=== PATIENT | male | born 1950 | race Caucasian/White ===

== ENCOUNTER → 2021-03-15 | Outpatient (REF) | payer MEDICARE | LOC: M LAB REF 16:09 | PROVIDERS: ATTEND Otolaryngology | DX: Q18.0 Sinus, fistula and cyst of branchial cleft (principal); Z85.79 Personal history of other malignant neoplasms of lymphoid, hematopoietic and related tissues; R22.1 Localized swelling, mass and lump, neck ==

== ENCOUNTER → 2021-03-22 | Outpatient (CLI) | payer MEDICARE ==
--- NOTE | 2021-03-22 15:49 | RADONC.CN ---
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 He underwent CT neck at [facility] on 03/13/21 which showed a left necrotic 3 cm level II cervical node as well as incompletely imaged upper mediastinal nodes. On 03/16/21 he had an FNA of the left neck node which was nondiagnostic. 03/20/21 CT chest abdomen and pelvis at [facility] showed mediastinal adenopathy encasing the right pulmonary artery and severely narrowing the SVC and azygous veins. 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 Diagnosis/Treatment History Oncologic History As above Recent data: 03/20/21 CT chest Confluent mediastinal adenopathy from the thoracic inlet extending inferiorly to the right hilum. The right pulmonary artery is encased. The SVC and azygous vein are narrowed. There is collateralization evident. Interval History Here with his daughter. Reports that he feels lightheaded as if he would pass out with bending over or flexing at the neck. He has noted increased facial swelling and ear pain/fullness. He has no dysphagia or hoarseness. He has no dyspnea. He is a current smoker, interested in quitting. Past Medical History: NHL 2000 'Anaplastic large cell lymphoma' Lumbar disc disease Family History: Brother 1 leukemia Brother 2 leukemia Social History: Current everyday smoker 40 pack year Does not drink Allergies / Meds Allergies: Coded Allergies: Cat Dander (Verified Allergy, Mild, STUFFY NOSE, 03/21/21) ENVIRONMENTAL (Verified Allergy, Mild, STUFFY/RUNNY NOSE, 03/21/21) Review of Systems Constitutional: Denies: Fever, Night Sweats, Weight Loss Eyes: Denies: Pain HEENT: Reports: Ear Pain, Other Symptoms (Lightheadedness ); Denies: Head Aches, Dysphagia, Sore Throat Skin: Denies: Rash Pulmonary: Denies: Dyspnea Cardiovascular: Denies: Chest Pain Gastrointestinal: Denies: Abdominal Pain Hematologic: Denies: Bleeding Excessively Musculoskeletal: Reports: Back pain; Denies: Neck pain Neurological: Denies: Weakness, Numbness Psych: Reports: Mood Normal Vital Signs Wt 236 lbs T 96.9 P 103 RR 19 BP 125/81 O2 100% Pain 8 (low back, chronic) Fatigue 1 General Exam: Alert, Cooperative, No Acute Distress Eye Exam: PERRLA, EOMI ENT EXAM: Other ENT (Face with plethora, no oropharyngeal edema. There is edema in the cervical soft tissues. Single large rubbery left level II/III node. Non- tender. No supraclavicular or axillary adenopathy. ) Chest Exam: Clear to auscultation Heart Exam: Rate Normal Abdomen Exam: Soft; Negative: Tenderness, Hepatospenomegaly Extremity Exam: Negative: Edema Skin Exam: Nl turgor and temperature Neuro Exam: Normal Gait, Normal Speech, Cranial Nerves 3-12 NL Psych Exam: Mental status NL Diagnostic and Laboratory Diagnostic Review Radiologic images, relevant labs and pathology reports were personally reviewed and discussed with Mr. Rubio. Assessment and Plan Impression Mr. 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 He underwent CT neck at [facility] on 03/13/21 which showed a left necrotic 3 cm level II cervical node as well as incompletely imaged upper mediastinal nodes. On 03/16/21 he had an FNA of the left neck node which was nondiagnostic. 03/20/21 CT chest abdomen and pelvis at [facility] showed mediastinal adenopathy encasing the right pulmonary artery and severely narrowing the SVC and azygous veins. 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 Stage Anaplastic large cell lymphoma (pending re-biopsy) Stage II Performance Status ECOG 1 Plan We had an extensive discussion with Mr. Rubio regarding the diagnosis at hand and available therapeutic options. On exam he has signs of SVC syndrome and radiographic high-grade stenosis of the SVC from the mediastinal adenopathy. He has not yet undergone diagnostic biopsy of the left cervical node. This is pending, as are PET-CT and BM biopsy. Not to mention mediport placement... Given the likely 2-3 week delay to accomplish the relevant diagnostics and get him started on appropriate systemic therapy, I recommend we proceed with palliative mediastinal RT now to prevent worsening of his SVC syndrome. I recommend 20 Gy in 5 fractions. We discussed the logistics of receiving radiation therapy in detail including the need for a 1-time planning session. This can occur tomorrow. Treatment can begin early next week. The proposed mediastinal treatment will not interfere with any excisional biopsy of the neck node. The proposed RT will also not preclude or complicate our ability to give consolidative ISRT post-systemic therapy completion, if indicated. For side effects he could expect some mild fatigue and esophagitis, possibly. After discussing the risks, benefits and alternatives to radiation therapy, Mr. Rubio was amenable to pursuing radiotherapy. All questions were answered to the patient's satisfaction. We instructed the patient that if there were any questions,concerns or changes in clinical status in the interim to contact us. Recommendations Urgent palliative RT for SVC syndrome 20 Gy in 5 fractions Will not interfere with biopsy targets Will not preclude consolidative ISRT down the line, if indicated Simulation tomorrow, treatment starting next week Billing Statement Total time of [46] minutes was spent preparing for the visit [3], obtaining HPI [9], examining the patient [5], reviewing diagnostic tests [7], discussing management options [10], coordinating care [3], and writing this note [9]. DARI MELVIN MD Mar 22, 2021 15:49
== END ==
LOC: M ONCR 12:38
PROVIDERS: ATTEND General Practice
DX: R59.0 Localized enlarged lymph nodes (principal); F17.210 Nicotine dependence, cigarettes, uncomplicated; J30.2 Other seasonal allergic rhinitis; Z85.72 Personal history of non-Hodgkin lymphomas; Z91.09 Other allergy status, other than to drugs and biological substances

== ENCOUNTER 2021-04-02 13:16 | Outpatient (RCR) | payer MEDICARE ==
[2021-04-26] MEDS ORDERED: ATIV1TAB10 PO (11:09)
[2021-06-13] MEDS ORDERED: PROC10TA5 PO (08:48)
[2021-06-13] MEDS ORDERED: ONDA-84 PO (08:48)
== END 2021-04-17 ==
LOC: M ONCR 13:16
PROVIDERS: ATTEND General Practice
DX: C84.78 Anaplastic large cell lymphoma, ALK-negative, lymph nodes of multiple sites (principal)

== ENCOUNTER 2021-04-04 07:00 | Day surgery (SDC) | payer MEDICARE ==
[~2021-04-04] VITALS: Ht 177.8 cm; Wt 104.3 kg
[2021-04-04] MEDS ORDERED: LR 1,000 ML IV ONE (07:15)
[2021-04-04] MEDS ORDERED: dexameTHASONE 4 MG/ML 1ML VIAL (J1100 PER 1MG) IV ONE (07:15)
[2021-04-04] MEDS ORDERED: LIDOCAINE W/EPINEPHRINE 1% 20ML VIAL As Ordered ONE (08:22)
[2021-04-04] MEDS ORDERED: POLYSPORIN TOPICAL OINTMENT 15GM As Ordered ONE (08:23)
[2021-04-04] MEDS ORDERED: ROCURONIUM BROMIDE 50 MG/5 ML VIAL As Ordered ONE (08:24)
[2021-04-04] MEDS ORDERED: LIDOCAINE 2% 100MG/5ML SDV (FOR ANES.) As Ordered ONE (08:24)
[2021-04-04] MEDS ORDERED: propofoL 200 MG/20 ML VIAL As Ordered ONE (08:24)
[2021-04-04] MEDS ORDERED: fentaNYL 250 MCG/5 ML INJECTION (J3010) As Ordered ONE (08:24)
[2021-04-04] MEDS ORDERED: MIDAZOLAM INJ 2MG/2ML VIAL (J2250 PER 1MG) As Ordered ONE (08:25)
[2021-04-04] MEDS ORDERED: dexameTHASONE 4 MG/ML 1ML VIAL (J1100 PER 1MG) As Ordered ONE ×2 (09:10→09:18)
[2021-04-04] MEDS ORDERED: PHENYLephrine 500MCG 5ML (100MCG/ML) SYRINGE As Ordered ONE ×2 (09:10→09:35)
[2021-04-04] MEDS ORDERED: ACETAMINOPHEN 1000MG 100ML IV BTL (OFIRMEV) (J0131 PER 10MG) As Ordered ONE (09:24)
[2021-04-04] MEDS ORDERED: HYDROmorphone HCL 2MG/ML 1ML VIAL As Ordered ONE (09:26)
[2021-04-04] MEDS ORDERED: SUGAMMADEX SODIUM 500 MG/5 ML VIAL (BRIDION) As Ordered ONE (09:28)
[2021-04-04] MEDS ORDERED: ONDANSETRON 4MG/2ML VIAL As Ordered ONE (09:28)
[2021-04-04] MEDS ORDERED: fentaNYL 100 MCG/2 ML INJECTION (J3010) IV PRN (11:05)
[2021-04-04] MEDS ORDERED: ONDANSETRON 4MG/2ML VIAL IV PRN (11:05)
[2021-04-04] MEDS ORDERED: LR 1,000 ML IV SCH ×2 (11:05)
[2021-04-04] MEDS ORDERED: METOCLOPRAMIDE INJ 10MG/2ML VIAL (J2765 PER 1) IV PRN (11:05)
[2021-04-04 13:03] VITALS: BP 127/79
[2021-04-26] MEDS ORDERED: ATIV1TAB10 PO (11:09)
[2021-06-13] MEDS ORDERED: ONDA-84 PO (08:48)
[2021-06-13] MEDS ORDERED: PROC10TA5 PO (08:48)
== END 2021-04-04 13:21 | disposition home or self-care (01) ==
LOC: M SDC 07:00
PROVIDERS: ATTEND Otolaryngology
DX: C77.0 Secondary and unspecified malignant neoplasm of lymph nodes of head, face and neck (principal); F17.218 Nicotine dependence, cigarettes, with other nicotine-induced disorders; K21.9 Gastro-esophageal reflux disease without esophagitis; R73.03 Prediabetes; Z92.3 Personal history of irradiation
CPT/HCPCS: 21552; 88307; 88341; 88342; J0131; J1100; J1170; J2250; J2370; J2405; J3010

== ENCOUNTER → 2021-04-30 | Outpatient (CLI) | payer MEDICARE ==
[~2021-04-30] MED LIST: ATIV1TAB10 PO; ONDA-84 PO; PROC10TA5 PO
== END ==
LOC: M PLARAD 12:32
PROVIDERS: ATTEND Internal Medicine Hematology & Oncology
DX: C84.78 Anaplastic large cell lymphoma, ALK-negative, lymph nodes of multiple sites (principal); J43.2 Centrilobular emphysema; I70.0 Atherosclerosis of aorta; I25.10 Atherosclerotic heart disease of native coronary artery without angina pectoris; R59.0 Localized enlarged lymph nodes; K57.90 Diverticulosis of intestine, part unspecified, without perforation or abscess without bleeding; E27.9 Disorder of adrenal gland, unspecified
CPT/HCPCS: 78815; A9552

== ENCOUNTER → 2021-05-07 | Outpatient (CLI) | payer MEDICARE ==
[~2021-05-07] MED LIST changes: -ONDA-84 PO; -PROC10TA5 PO; +PROHANCE 279.3MG/ML 15ML VIAL As Ordered ONE; +PROHANCE 279.3MG/ML 5ML VIAL As Ordered ONE
--- NOTE | 2021-05-08 20:19 | REPVR ---
PROCEDURE INFORMATION: Exam: MR Head Without and With Contrast Exam date and time: 05/07/2021 2:17 PM Age: 70 years old Clinical indication: Staging for metastatic disease. TECHNIQUE: Imaging protocol: MR of the head without and with intravenous contrast. Contrast material: PROHANCE; Contrast volume: 20 ml; Contrast route: INTRAVENOUS (IV); COMPARISON: CT ST NECK W/ CONTRAST 03/13/2021 9:40 AM, PET/CT Skull/mid thigh 04/30/2021 1:48 PM FINDINGS: Brain: Moderate nonspecific T2/FLAIR hyperintensities of the periventricular and deep subcortical white matter, most likely secondary to chronic small vessel ischemic change. No intracranial hemorrhage or extra-axial fluid collection. No evidence of mass effect or midline shift. No restricted diffusion to suggest acute infarct. No abnormal intracranial enhancement. Cerebral ventricles: Mild prominence of the ventricles and sulci, likely attributed to parenchymal volume loss. Bones/joints: Unremarkable. Paranasal sinuses: Normal as visualized. No acute sinusitis. Mastoid air cells: No mastoid effusion. Orbital cavity: Unremarkable. Soft tissues: Unremarkable. IMPRESSION: 1. No acute intracranial pathology. No evidence of metastatic disease to the brain. 2. Chronic findings, as above. Electronically signed by: Jose Carlos Barton On 05/08/2021 20:19:28 PM
== END ==
LOC: M PLAIMG 04-18 13:44 → M RAD 12:40
PROVIDERS: ATTEND Specialist
DX: C34.90 Malignant neoplasm of unspecified part of unspecified bronchus or lung (principal)
CPT/HCPCS: 70553; A9576

== ENCOUNTER → 2021-06-05 | Outpatient (CLI) | payer MEDICARE ==
[~2021-06-05] MED LIST changes: -PROHANCE 279.3MG/ML 15ML VIAL As Ordered ONE; -PROHANCE 279.3MG/ML 5ML VIAL As Ordered ONE
== END ==
LOC: M ONCR 10:15
PROVIDERS: ATTEND General Practice
DX: C84.78 Anaplastic large cell lymphoma, ALK-negative, lymph nodes of multiple sites (principal); C34.12 Malignant neoplasm of upper lobe, left bronchus or lung; Z92.3 Personal history of irradiation; F17.210 Nicotine dependence, cigarettes, uncomplicated

== ENCOUNTER → 2021-06-11 | Outpatient (CLI) | payer MEDICARE ==
[~2021-06-11] MED LIST changes: +LIDOCAINE 1% MDV 20ML VIAL As Ordered ONE; +MIDAZOLAM INJ 2MG/2ML VIAL (J2250 PER 1MG) As Ordered ONE; +ONDA-84 PO; +PROC10TA5 PO; +ceFAZolin 2 GM/D5W 50 ML IV BAG (J0690 PER 500MG) As Ordered ONE; +diphenhydrAMINE 50MG/ML VIAL (J1200) As Ordered ONE; +fentaNYL 100 MCG/2 ML INJECTION (J3010) As Ordered ONE
[2021-06-11] MEDS: NS 1,000 ML IV SCH (09:46)
[2021-06-11] MEDS: ceFAZolin SOD 2 GM in IV 1 EA IV ONE (09:46)
[2021-06-11 12:30] VITALS: BP 127/79
== END ==
LOC: M IRPRO 08:13
PROVIDERS: ATTEND Specialist
DX: C34.12 Malignant neoplasm of upper lobe, left bronchus or lung (principal); Z91.09 Other allergy status, other than to drugs and biological substances
CPT/HCPCS: 36561; 99152; 99153; C1769; C1788; C1894; J0690; J1200; J1642; J1644; J2250; J3010

== ENCOUNTER → 2021-06-26 | Outpatient (POV) | payer MEDICARE ==
[~2021-06-26] VITALS: Ht 177.8 cm; Wt 104.5 kg
[~2021-06-26] MED LIST changes: -LIDOCAINE 1% MDV 20ML VIAL As Ordered ONE; -MIDAZOLAM INJ 2MG/2ML VIAL (J2250 PER 1MG) As Ordered ONE; -ceFAZolin 2 GM/D5W 50 ML IV BAG (J0690 PER 500MG) As Ordered ONE; -diphenhydrAMINE 50MG/ML VIAL (J1200) As Ordered ONE; -fentaNYL 100 MCG/2 ML INJECTION (J3010) As Ordered ONE
[2021-06-26 14:30] VITALS: BP 132/80
== END ==
LOC: M IRPOV 14:13
PROVIDERS: ATTEND Radiology Diagnostic Radiology
DX: Z45.2 Encounter for adjustment and management of vascular access device (principal)

== ENCOUNTER → 2021-08-28 | Outpatient (CLI) | payer MEDICARE ==
[~2021-08-28] MED LIST changes: +GASTROGRAFIN SOLUTION 30ML (Q9963) As Ordered ONE; +ISOVUE-370 76% 100ML VIAL As Ordered ONE; +LORA1TAB4 PO
== END ==
LOC: M RAD 10:00
PROVIDERS: ATTEND Specialist
DX: C34.90 Malignant neoplasm of unspecified part of unspecified bronchus or lung (principal); R16.1 Splenomegaly, not elsewhere classified; N28.1 Cyst of kidney, acquired; I70.0 Atherosclerosis of aorta; M46.86 Other specified inflammatory spondylopathies, lumbar region
CPT/HCPCS: 71260; 74177; Q9963; Q9967

== ENCOUNTER → 2021-09-05 | Outpatient (CLI) | payer MEDICARE ==
[~2021-09-05] MED LIST changes: -GASTROGRAFIN SOLUTION 30ML (Q9963) As Ordered ONE; -ISOVUE-370 76% 100ML VIAL As Ordered ONE; +PROHANCE 279.3MG/ML 15ML VIAL As Ordered ONE; +PROHANCE 279.3MG/ML 5ML VIAL As Ordered ONE
== END ==
LOC: M RAD 07:52
PROVIDERS: ATTEND General Practice
DX: C34.12 Malignant neoplasm of upper lobe, left bronchus or lung (principal); R90.82 White matter disease, unspecified
CPT/HCPCS: 70553; A9576

== ENCOUNTER → 2021-09-11 | Outpatient (CLI) | payer MEDICARE ==
[~2021-09-11] MED LIST changes: -PROHANCE 279.3MG/ML 15ML VIAL As Ordered ONE; -PROHANCE 279.3MG/ML 5ML VIAL As Ordered ONE
== END ==
LOC: M ONCR 08:59
PROVIDERS: ATTEND General Practice
DX: C84.78 Anaplastic large cell lymphoma, ALK-negative, lymph nodes of multiple sites (principal); C34.12 Malignant neoplasm of upper lobe, left bronchus or lung; C01 Malignant neoplasm of base of tongue; F17.210 Nicotine dependence, cigarettes, uncomplicated; Z92.21 Personal history of antineoplastic chemotherapy; Z92.3 Personal history of irradiation

== ENCOUNTER 2021-11-24 12:34 | Inpatient (IN) | payer MEDICARE ==
[~2021-11-24] VITALS: Ht 177.8 cm; Wt 106.3 kg
[~2021-11-24 12:34] MED LIST changes: +SODIUM CHLORIDE 0.9% INJ 10 ML SYR IV SCH
[2021-11-24 13:35] LABS: BASO # 0.1 10^3/uL (0.0-0.2); BASO % 0.4 % (0.0-1.0); EOS # 0.1 10^3/uL (0.0-0.5); EOS % 0.9 % (0.0-3.0); HEMATOCRIT 47.9 % (42.0-52.0); HEMOGLOBIN 15.6 g/dl (13.5-17.5); LYMPH # 1.5 10^3/uL (1.5-5.0); LYMPH % 12.5 % (24.0-44.0); MEAN CORPUSCULAR HEMOGLOBIN 27.7 pg (27.0-33.0); MEAN CORPUSCULAR HGB CONC 32.6 g/dl (32.0-36.5); MEAN CORPUSCULAR VOLUME 85.1 fl (80.0-96.0); MONO # 0.7 10^3/uL (0.0-0.8); MONO % 6.1 % (2.0-8.0); NEUTROPHILS # 9.4 10^3/uL (1.5-8.5); NEUTROPHILS % 79.4 % (36.0-66.0); PLATELET COUNT, AUTOMATED 116 10^3/uL (150-450); RED BLOOD COUNT 5.63 10^6/uL (4.30-6.10); WHITE BLOOD COUNT 11.8 10^3/uL (4.0-10.0)
[2021-11-24 14:15] LABS: ALBUMIN 3.3 GM/DL (3.2-5.2); ALT/SGPT 16 U/L (12-78); BILIRUBIN,DIRECT < 0.1 MG/DL (0.0-0.2); BILIRUBIN,TOTAL 0.4 MG/DL (0.2-1.0); BLOOD UREA NITROGEN 21 MG/DL (7-18); CALCIUM LEVEL 9.6 MG/DL (8.8-10.2); CARBON DIOXIDE LEVEL 17 MEQ/L (21-32); CHLORIDE LEVEL 100 MEQ/L (98-107); CREATININE FOR GFR 1.19 MG/DL (0.70-1.30); GLOMERULAR FILTRATION RATE > 60.0 (>49); GLUCOSE, FASTING 529 MG/DL (70-100); NT-PRO BNP 145 PG/ML (<125); SODIUM LEVEL 134 MEQ/L (136-145); THYROID STIMULATING HORMONE 0.822 uIU/ML (0.358-3.740); THYROXINE (T4) 6.9 UG/DL (4.5-12.0); TOTAL PROTEIN 7.3 GM/DL (6.4-8.2)
[2021-11-24] MEDS ORDERED: HumuLIN R (REGULAR) INSULIN (NovoLIN R) **100U/ML** PER UNIT IV ONE (14:35)
[2021-11-24] MEDS ORDERED: NS 1,000 ML IV ONE (14:35)
[2021-11-24 15:19] LABS: VENOUS BASE EXCESS -10.8 (-2.0-2.0); VENOUS HCO3 15.7 MEQ/L (23.0-27.0); VENOUS O2 SATURATION 81.9 % (60.0-80.0); VENOUS PARTIAL PRESSURE CO2 37.3 mmHg (38.0-50.0); VENOUS PARTIAL PRESSURE O2 48.4 mmHg (30.0-50.0); VENOUS PH 7.242 UNITS (7.330-7.430); VENOUS STANDARD HCO3 15.8 MEQ/L; VENOUS TOTAL CO2 16.8 MEQ/L (24.0-28.0)
[2021-11-24 15:21] LABS: BASO % 0.4 % (0.0-1.0); EOS # 0.1 10^3/uL (0.0-0.5); EOS % 0.6 % (0.0-3.0); HEMATOCRIT 45.2 % (42.0-52.0); HEMOGLOBIN 14.9 g/dl (13.5-17.5); LYMPH # 1.3 10^3/uL (1.5-5.0); LYMPH % 12.4 % (24.0-44.0); MEAN CORPUSCULAR HEMOGLOBIN 27.9 pg (27.0-33.0); MEAN CORPUSCULAR VOLUME 84.5 fl (80.0-96.0); MONO # 0.6 10^3/uL (0.0-0.8); MONO % 5.8 % (2.0-8.0); NEUTROPHILS # 8.1 10^3/uL (1.5-8.5); NEUTROPHILS % 80.4 % (36.0-66.0); PLATELET COUNT, AUTOMATED 136 10^3/uL (150-450); RED BLOOD COUNT 5.35 10^6/uL (4.30-6.10); WHITE BLOOD COUNT 10.1 10^3/uL (4.0-10.0)
[2021-11-24] MEDS ORDERED: INSULIN IV RATE CHANGE DOCUMENTATION ML/HR XX SCH ×3 (15:35→19:55)
[2021-11-24] MEDS ORDERED: INSULIN REGULAR IN 0.9 % NACL 100 UNIT in IV 1 EA IV SCH ×4 (15:35→17:40)
[2021-11-24 15:42] LABS: HEMOGLOBIN A1c 11.6 %
[2021-11-24 15:59] LABS: ALBUMIN 3.1 GM/DL (3.2-5.2); ALT/SGPT 16 U/L (12-78); BILIRUBIN,DIRECT < 0.1 MG/DL (0.0-0.2); BILIRUBIN,TOTAL 0.4 MG/DL (0.2-1.0); LIPASE 294 U/L (73-393); MAGNESIUM LEVEL 2.1 MG/DL (1.8-2.4); PHOSPHORUS LEVEL 3.3 MG/DL (2.5-4.9); TOTAL PROTEIN 6.6 GM/DL (6.4-8.2)
[2021-11-24 16:00] LABS: ACETONE/KETONE > 46.00 MG/DL (<2.81)
[2021-11-24 16:08] LABS: OSMOLALITY SERUM 314 MOSM/KG (280-301)
[2021-11-24] MEDS ORDERED: NYST50SS PO (17:29)
[2021-11-24] MEDS ORDERED: HOME MED LIST COMPLETE! XX SCH (17:30)
[2021-11-24] MEDS ORDERED: MAALOX 30 ML SUSP *UDC PO PRN (17:40)
[2021-11-24] MEDS ORDERED: MOM 30ML SUSPENSION UDC PO PRN (17:40)
[2021-11-24] MEDS ORDERED: ACETAMINOPHEN TAB 650MG DOSE (2X325MG) PO PRN (17:40)
[2021-11-24] MEDS ORDERED: NS 0.45% 1,000 ML IV SCH (18:00)
[2021-11-24 19:15] LABS: BLOOD UREA NITROGEN 18 MG/DL (7-18); CALCIUM LEVEL 9.1 MG/DL (8.8-10.2); CARBON DIOXIDE LEVEL 22 MEQ/L (21-32); CHLORIDE LEVEL 106 MEQ/L (98-107); CREATININE FOR GFR 1.02 MG/DL (0.70-1.30); GLOMERULAR FILTRATION RATE > 60.0 (>49); GLUCOSE, FASTING 235 MG/DL (70-100); PHOSPHORUS LEVEL 1.9 MG/DL (2.5-4.9); POTASSIUM SERUM 3.7 MEQ/L (3.5-5.1); SODIUM LEVEL 138 MEQ/L (136-145)
[2021-11-24 19:45] VITALS: BP 100/70
[2021-11-24 20:04] VITALS: BP 97/69
[2021-11-24 21:00] VITALS: BP 91/71
[2021-11-24] MEDS ORDERED: LEVEMIR (INSULIN DETEMIR) 1 UNITS/0.01ML SC SCH (21:00)
[2021-11-24] MEDS ORDERED: POTASSIUM PHOSPHATE INJ 20 MMOL in D5W 250 ML IV ONE (21:00)
[2021-11-24] MEDS: NYSTATIN 500,000 U/5 ML SUSP UDC PO SCH (21:03)
[2021-11-24 22:00] VITALS: BP 97/66
[2021-11-24] MEDS ORDERED: GLUCOSE 4GM CHEW TABLET PO PRN (22:10)
[2021-11-24] MEDS ORDERED: GLUCAGON INJ 1MG VIAL SC PRN (22:10)
[2021-11-24] MEDS ORDERED: DEXTROSE 50% 50 ML SYRINGE IV PRN (22:10)
[2021-11-24 22:28] LABS: BLOOD UREA NITROGEN 17 MG/DL (7-18); CALCIUM LEVEL 9.4 MG/DL (8.8-10.2); CARBON DIOXIDE LEVEL 26 MEQ/L (21-32); CHLORIDE LEVEL 108 MEQ/L (98-107); CREATININE FOR GFR 1.04 MG/DL (0.70-1.30); GLOMERULAR FILTRATION RATE > 60.0 (>49); GLUCOSE, FASTING 108 MG/DL (70-100); MAGNESIUM LEVEL 1.9 MG/DL (1.8-2.4); PHOSPHORUS LEVEL 1.8 MG/DL (2.5-4.9); POTASSIUM SERUM 3.3 MEQ/L (3.5-5.1); SODIUM LEVEL 140 MEQ/L (136-145)
[2021-11-24] MEDS: HEPARIN SOD (PORCINE) 5000UNITS/ML 1ML VIAL/SYRINGE SC SCH (22:46)
[2021-11-24 23:00] VITALS: BP 98/65
[2021-11-25] VITALS (11 sets, daily range): BP systolic 92–109; BP diastolic 63–73
[2021-11-25 03:04] LABS: BLOOD UREA NITROGEN 17 MG/DL (7-18); CARBON DIOXIDE LEVEL 23 MEQ/L (21-32); CHLORIDE LEVEL 106 MEQ/L (98-107); CREATININE FOR GFR 0.96 MG/DL (0.70-1.30); GLOMERULAR FILTRATION RATE > 60.0 (>49); GLUCOSE, FASTING 258 MG/DL (70-100); MAGNESIUM LEVEL 1.9 MG/DL (1.8-2.4); PHOSPHORUS LEVEL 3.6 MG/DL (2.5-4.9); POTASSIUM SERUM 4.4 MEQ/L (3.5-5.1); SODIUM LEVEL 139 MEQ/L (136-145)
[2021-11-25 05:27] LABS: BLOOD UREA NITROGEN 16 MG/DL (7-18); CALCIUM LEVEL 8.9 MG/DL (8.8-10.2); CARBON DIOXIDE LEVEL 22 MEQ/L (21-32); CHLORIDE LEVEL 106 MEQ/L (98-107); CREATININE FOR GFR 0.85 MG/DL (0.70-1.30); GLOMERULAR FILTRATION RATE > 60.0 (>49); GLUCOSE, FASTING 302 MG/DL (70-100); MAGNESIUM LEVEL 1.9 MG/DL (1.8-2.4); PHOSPHORUS LEVEL 2.6 MG/DL (2.5-4.9); POTASSIUM SERUM 3.7 MEQ/L (3.5-5.1); SODIUM LEVEL 139 MEQ/L (136-145)
[2021-11-25] MEDS: HEPARIN SOD (PORCINE) 5000UNITS/ML 1ML VIAL/SYRINGE SC SCH ×2 (05:52→13:13)
[2021-11-25] MEDS ORDERED: NS 500 ML IV ONE (07:45)
[2021-11-25] MEDS: INSULIN LISPRO (NovoLOG) PER UNIT SC SCH ×4 (08:15→20:28)
[2021-11-25] MEDS: NYSTATIN 500,000 U/5 ML SUSP UDC PO SCH ×4 (08:15→20:28)
[2021-11-25] MEDS: LEVEMIR (INSULIN DETEMIR) 1 UNITS/0.01ML SC SCH ×2 (09:00→20:28)
[2021-11-25] MEDS ORDERED: INSULIN LISPRO (NovoLOG) PER UNIT SC SCH (12:00)
[2021-11-25] MEDS: KCL 20MEQ IN 0.45NS 1000ML 1,000 ML IV SCH ×2 (12:25→22:10)
[2021-11-25] MEDS ORDERED: LEVEMIR (INSULIN DETEMIR) 1 UNITS/0.01ML SC ONE (13:15)
[2021-11-25 14:00] LABS: BLOOD UREA NITROGEN 14 MG/DL (7-18); CALCIUM LEVEL 9.2 MG/DL (8.8-10.2); CARBON DIOXIDE LEVEL 24 MEQ/L (21-32); CHLORIDE LEVEL 105 MEQ/L (98-107); CREATININE FOR GFR 0.94 MG/DL (0.70-1.30); GLOMERULAR FILTRATION RATE > 60.0 (>49); GLUCOSE, FASTING 289 MG/DL (70-100); POTASSIUM SERUM 3.6 MEQ/L (3.5-5.1); SODIUM LEVEL 135 MEQ/L (136-145)
[2021-11-25] MEDS: SENOKOT S TAB PO SCH ×3 (14:56→20:32)
[2021-11-26 04:00] VITALS: BP 101/67
[2021-11-26 05:13] LABS: HEMATOCRIT 35.5 % (42.0-52.0); MEAN CORPUSCULAR HEMOGLOBIN 27.4 pg (27.0-33.0); MEAN CORPUSCULAR HGB CONC 33.2 g/dl (32.0-36.5); MEAN CORPUSCULAR VOLUME 82.6 fl (80.0-96.0); PLATELET COUNT, AUTOMATED 103 10^3/uL (150-450); WHITE BLOOD COUNT 6.7 10^3/uL (4.0-10.0)
[2021-11-26 05:14] LABS: HEMOGLOBIN 11.8 g/dl (13.5-17.5)
[2021-11-26 05:38] LABS: BLOOD UREA NITROGEN 10 MG/DL (7-18); CALCIUM LEVEL 8.5 MG/DL (8.8-10.2); CARBON DIOXIDE LEVEL 26 MEQ/L (21-32); CHLORIDE LEVEL 106 MEQ/L (98-107); CREATININE FOR GFR 0.66 MG/DL (0.70-1.30); GLOMERULAR FILTRATION RATE > 60.0 (>49); GLUCOSE, FASTING 176 MG/DL (70-100); POTASSIUM SERUM 3.3 MEQ/L (3.5-5.1); SODIUM LEVEL 140 MEQ/L (136-145)
[2021-11-26] MEDS ORDERED: POTASSIUM CHLORIDE 10MEQ SR TABLET PO ONE ×2 (07:30→10:00)
[2021-11-26 08:00] VITALS: BP 97/65
[2021-11-26] MEDS: NYSTATIN 500,000 U/5 ML SUSP UDC PO SCH ×4 (08:21→20:03)
[2021-11-26] MEDS: INSULIN LISPRO (NovoLOG) PER UNIT SC SCH ×4 (08:22→20:10)
[2021-11-26] MEDS: LEVEMIR (INSULIN DETEMIR) 1 UNITS/0.01ML SC SCH (08:22)
[2021-11-26] MEDS: ENOXAPARIN 40MG/0.4ML SYRINGE (J1650 PER 10MG) SC SCH (08:23)
[2021-11-26] MEDS: SENOKOT S TAB PO SCH ×3 (09:00→20:32)
[2021-11-26] MEDS: DOXYCYCLINE HYCLATE 100MG TABLET PO SCH ×2 (09:55→20:03)
[2021-11-26] MEDS ORDERED: LIDOCAINE 1% MDV 20ML VIAL As Ordered ONE (11:32)
[2021-11-26] MEDS ORDERED: SODIUM CHLORIDE 0.9% INJ 10 ML SYR IV PRN (13:20)
[2021-11-26] MEDS: SODIUM CHLORIDE 0.9% INJ 10 ML SYR IV SCH (14:13)
[2021-11-26 15:43] VITALS: BP 101/65
[2021-11-26] MEDS: glipiZIDE (GLUCOTROL) 5 MG TAB PO SCH (18:18)
[2021-11-26 20:00] VITALS: BP 102/64
[2021-11-27 04:00] VITALS: BP 96/61
[2021-11-27 04:58] LABS: HEMATOCRIT 33.7 % (42.0-52.0); MEAN CORPUSCULAR HGB CONC 32.6 g/dl (32.0-36.5); MEAN CORPUSCULAR VOLUME 82.6 fl (80.0-96.0); RED BLOOD COUNT 4.08 10^6/uL (4.30-6.10); WHITE BLOOD COUNT 5.2 10^3/uL (4.0-10.0)
[2021-11-27 05:22] LABS: BLOOD UREA NITROGEN 10 MG/DL (7-18); CALCIUM LEVEL 8.3 MG/DL (8.8-10.2); CARBON DIOXIDE LEVEL 29 MEQ/L (21-32); CHLORIDE LEVEL 105 MEQ/L (98-107); CREATININE FOR GFR 0.61 MG/DL (0.70-1.30); GLOMERULAR FILTRATION RATE > 60.0 (>49); GLUCOSE, FASTING 225 MG/DL (70-100); POTASSIUM SERUM 3.2 MEQ/L (3.5-5.1); SODIUM LEVEL 137 MEQ/L (136-145)
[2021-11-27 05:36] LABS: PLATELET COUNT, AUTOMATED 86 10^3/uL (150-450)
[2021-11-27] MEDS: glipiZIDE (GLUCOTROL) 5 MG TAB PO SCH (07:28)
[2021-11-27] MEDS: INSULIN LISPRO (NovoLOG) PER UNIT SC SCH ×2 (07:29→12:03)
[2021-11-27] MEDS: SENOKOT S TAB PO SCH (07:42)
[2021-11-27] MEDS ORDERED: POTASSIUM CHLORIDE 10MEQ SR TABLET PO ONE ×2 (07:50→11:00)
[2021-11-27 08:26] VITALS: BP 102/59
[2021-11-27] MEDS: NYSTATIN 500,000 U/5 ML SUSP UDC PO SCH ×2 (08:29→12:02)
[2021-11-27] MEDS: ENOXAPARIN 40MG/0.4ML SYRINGE (J1650 PER 10MG) SC SCH (08:29)
[2021-11-27] MEDS: SODIUM CHLORIDE 0.9% INJ 10 ML SYR IV SCH (08:30)
[2021-11-27] MEDS: CEPHALEXIN 500 MG CAP PO SCH ×2 (08:33→09:00)
[2021-11-27] MEDS ORDERED: LACTOBACILLUS ACIDOPHILUS CAP (BACID) PO SCH (09:00)
[2021-11-27] MEDS ORDERED: LEVEMIR (INSULIN DETEMIR) 1 UNITS/0.01ML SC SCH ×2 (09:00)
[2021-11-27] MEDS ORDERED: CLINDAMYCIN 150MG CAPSULE PO SCH (12:00)
[2021-11-27] MEDS ORDERED: LEVE1INJ5 SC (12:13)
[2021-11-27] MEDS ORDERED: RISATAB3 PO (12:13)
[2021-11-27] MEDS ORDERED: CLEO300C2 PO (12:13)
[2021-11-27] MEDS ORDERED: GLIP5TAB8 PO (12:13)
[2021-11-27] MEDS ORDERED: BLOOKIT21 XX (12:16)
[2021-11-27] MEDS ORDERED: PEN1MIS22 SC (12:16)
[2021-11-27] MEDS ORDERED: ALCOPAD25 TOP (12:16)
[2021-11-27] MEDS ORDERED: LANC30MI XX (12:16)
[2021-11-27] MEDS ORDERED: GLUC1TES2 XX (12:16)
== END 2021-11-27 14:09 | disposition home or self-care (01) | DRG 638 ==
LOC: M ED 12:34 → M ED INP 17:37 → ENRESERV 19:04 → M ICU 19:51
PROVIDERS: ADMIT Internal Medicine Pulmonary Disease; ATTEND Internal Medicine Nephrology
PROC: 0W9M3ZZ Drainage of Male Perineum, Percutaneous Approach (ICD-10-PCS; principal; 2021-11-26 15:00)
DX: E11.10 Type 2 diabetes mellitus with ketoacidosis without coma (principal); L02.215 Cutaneous abscess of perineum; C34.90 Malignant neoplasm of unspecified part of unspecified bronchus or lung; C79.51 Secondary malignant neoplasm of bone; C79.71 Secondary malignant neoplasm of right adrenal gland; C79.72 Secondary malignant neoplasm of left adrenal gland; C78.1 Secondary malignant neoplasm of mediastinum; C79.89 Secondary malignant neoplasm of other specified sites; L02.31 Cutaneous abscess of buttock; L02.412 Cutaneous abscess of left axilla; C85.10 Unspecified B-cell lymphoma, unspecified site; C76.0 Malignant neoplasm of head, face and neck; D69.6 Thrombocytopenia, unspecified; E83.39 Other disorders of phosphorus metabolism; K21.9 Gastro-esophageal reflux disease without esophagitis; E86.0 Dehydration; D72.829 Elevated white blood cell count, unspecified; E87.6 Hypokalemia; Z92.21 Personal history of antineoplastic chemotherapy; Z92.3 Personal history of irradiation; Z79.899 Other long term (current) drug therapy; Z88.8 Allergy status to other drugs, medicaments and biological substances; Z87.891 Personal history of nicotine dependence

== ENCOUNTER 2021-12-04 15:51 | Emergency (ER) | payer MEDICARE ==
[~2021-12-04] VITALS: Ht 172.7 cm; Wt 105.2 kg
[~2021-12-04 15:51] MED LIST changes: +ALCOPAD25 TOP; +BLOOKIT21 XX; +CLEO300C2 PO; +GLIP5TAB8 PO; +GLUC1TES2 XX; +LANC30MI XX; +LEVE1INJ5 SC; +NYST50SS PO; +PEN1MIS22 SC; +RISATAB3 PO; -SODIUM CHLORIDE 0.9% INJ 10 ML SYR IV SCH
[2021-12-04] MEDS ORDERED: TECE1200 IV (16:08)
[2021-12-04 19:20] LABS: BASO % 0.6 % (0.0-1.0); EOS # 0.2 10^3/uL (0.0-0.5); EOS % 2.8 % (0.0-3.0); HEMATOCRIT 39.8 % (42.0-52.0); HEMOGLOBIN 12.8 g/dl (13.5-17.5); LYMPH # 0.9 10^3/uL (1.5-5.0); LYMPH % 17.7 % (24.0-44.0); MEAN CORPUSCULAR HEMOGLOBIN 27.5 pg (27.0-33.0); MEAN CORPUSCULAR HGB CONC 32.2 g/dl (32.0-36.5); MEAN CORPUSCULAR VOLUME 85.4 fl (80.0-96.0); MONO # 0.5 10^3/uL (0.0-0.8); MONO % 9.4 % (2.0-8.0); NEUTROPHILS # 3.7 10^3/uL (1.5-8.5); NEUTROPHILS % 68.9 % (36.0-66.0); PLATELET COUNT, AUTOMATED 162 10^3/uL (150-450); RED BLOOD COUNT 4.66 10^6/uL (4.30-6.10); WHITE BLOOD COUNT 5.3 10^3/uL (4.0-10.0)
[2021-12-04 20:21] LABS: MONO SCRN NEGATIVE (NEGATIVE)
[2021-12-04 20:22] LABS: ALBUMIN 3.2 GM/DL (3.2-5.2); ALT/SGPT 1072 U/L (12-78); BILIRUBIN,DIRECT 1.3 MG/DL (0.0-0.2); BILIRUBIN,TOTAL 1.7 MG/DL (0.2-1.0); BLOOD UREA NITROGEN 10 MG/DL (7-18); CALCIUM LEVEL 9.1 MG/DL (8.8-10.2); CARBON DIOXIDE LEVEL 25 MEQ/L (21-32); CHLORIDE LEVEL 106 MEQ/L (98-107); GLOMERULAR FILTRATION RATE > 60.0 (>49); GLUCOSE, FASTING 134 MG/DL (70-100); LIPASE 372 U/L (73-393); POTASSIUM SERUM 3.7 MEQ/L (3.5-5.1); SODIUM LEVEL 139 MEQ/L (136-145); TOTAL PROTEIN 6.5 GM/DL (6.4-8.2)
[2021-12-04 20:58] LABS: HEPATITIS B SURFACE ANTIGEN NEGATIVE (NEGATIVE)
[2021-12-04 21:25] LABS: HEPATITIS B CORE ANTIBODY IGM NEGATIVE (NEGATIVE)
[2021-12-04 22:55] VITALS: BP 130/85
== END 2021-12-05 00:45 | disposition home or self-care (01) ==
LOC: M ED 15:51
DX: R74.01 Elevation of levels of liver transaminase levels (principal); R93.429 Abnormal radiologic findings on diagnostic imaging of unspecified kidney; R93.89 Abnormal findings on diagnostic imaging of other specified body structures; R93.2 Abnormal findings on diagnostic imaging of liver and biliary tract; C34.90 Malignant neoplasm of unspecified part of unspecified bronchus or lung; K86.9 Disease of pancreas, unspecified; K83.1 Obstruction of bile duct; E66.9 Obesity, unspecified; E11.9 Type 2 diabetes mellitus without complications; I87.1 Compression of vein; J30.89 Other allergic rhinitis; J30.81 Allergic rhinitis due to animal (cat) (dog) hair and dander; F17.200 Nicotine dependence, unspecified, uncomplicated; Z85.810 Personal history of malignant neoplasm of tongue; Z79.4 Long term (current) use of insulin; Z88.8 Allergy status to other drugs, medicaments and biological substances

== ENCOUNTER → 2021-12-19 | Outpatient (CLI) | payer MEDICARE ==
[~2021-12-19] MED LIST changes: +CLIN-250 PO; +MEMA10TA19 PO; +MEMA1TAB3 PO; +PROHANCE 279.3MG/ML 15ML VIAL As Ordered ONE; +PROHANCE 279.3MG/ML 5ML VIAL As Ordered ONE; +TECE1200 IV; +TRIA1CR80 TOP
== END ==
LOC: M RAD 15:28
PROVIDERS: ATTEND General Practice
DX: Z51.0 Encounter for antineoplastic radiation therapy (principal); C84.78 Anaplastic large cell lymphoma, ALK-negative, lymph nodes of multiple sites; C01 Malignant neoplasm of base of tongue; C34.12 Malignant neoplasm of upper lobe, left bronchus or lung
CPT/HCPCS: 70553; A9576

== ENCOUNTER → 2021-12-21 | Outpatient (CLI) | payer MEDICARE ==
[~2021-12-21] MED LIST changes: -PROHANCE 279.3MG/ML 15ML VIAL As Ordered ONE; -PROHANCE 279.3MG/ML 5ML VIAL As Ordered ONE
== END ==
LOC: M ONCR 08:51
PROVIDERS: ATTEND General Practice
DX: C01 Malignant neoplasm of base of tongue (principal); C34.12 Malignant neoplasm of upper lobe, left bronchus or lung; C79.31 Secondary malignant neoplasm of brain; F17.210 Nicotine dependence, cigarettes, uncomplicated; J30.81 Allergic rhinitis due to animal (cat) (dog) hair and dander; J30.89 Other allergic rhinitis; Z92.21 Personal history of antineoplastic chemotherapy; Z92.22 Personal history of monoclonal drug therapy; Z92.3 Personal history of irradiation; Z91.041 Radiographic dye allergy status; Z79.2 Long term (current) use of antibiotics; Z79.4 Long term (current) use of insulin; Z79.84 Long term (current) use of oral hypoglycemic drugs; Z88.1 Allergy status to other antibiotic agents; Z88.5 Allergy status to narcotic agent; Z91.09 Other allergy status, other than to drugs and biological substances

== ENCOUNTER 2022-01-15 12:15 | Outpatient (RCR) | payer MEDICARE | END 2022-01-16 | LOC: M ONCR 12:15 | PROVIDERS: ATTEND General Practice | DX: Z51.0 Encounter for antineoplastic radiation therapy (principal); C79.31 Secondary malignant neoplasm of brain; C84.78 Anaplastic large cell lymphoma, ALK-negative, lymph nodes of multiple sites; C01 Malignant neoplasm of base of tongue; C34.12 Malignant neoplasm of upper lobe, left bronchus or lung; C78.7 Secondary malignant neoplasm of liver and intrahepatic bile duct ==

== ENCOUNTER 2022-01-22 13:01 | Observation (INO) | payer MEDICARE ==
[~2022-01-22] VITALS: Ht 172.7 cm; Wt 101.0 kg
[2022-01-22 17:24] LABS: BASO % 0.2 % (0.0-1.0); EOS # 0.1 10^3/uL (0.0-0.5); EOS % 2.8 % (0.0-3.0); HEMATOCRIT 39.5 % (42.0-52.0); HEMOGLOBIN 12.1 g/dl (13.5-17.5); LYMPH # 0.5 10^3/uL (1.5-5.0); LYMPH % 11.4 % (24.0-44.0); MEAN CORPUSCULAR HEMOGLOBIN 26.7 pg (27.0-33.0); MEAN CORPUSCULAR HGB CONC 30.6 g/dl (32.0-36.5); MONO # 0.3 10^3/uL (0.0-0.8); MONO % 6.9 % (2.0-8.0); NEUTROPHILS # 3.6 10^3/uL (1.5-8.5); NEUTROPHILS % 78.1 % (36.0-66.0); PLATELET COUNT, AUTOMATED 144 10^3/uL (150-450); RED BLOOD COUNT 4.54 10^6/uL (4.30-6.10); WHITE BLOOD COUNT 4.6 10^3/uL (4.0-10.0)
[2022-01-22] MEDS ORDERED: NS 1,000 ML IV ONE (17:25)
[2022-01-22 18:08] LABS: INR 1.04; PROTHROMBIN TIME 14.1 SECONDS (12.7-14.5)
[2022-01-22 18:09] LABS: PARTIAL THROMBOPLASTIN TIME 29.3 SECONDS (25.9-37.0)
[2022-01-22 18:14] LABS: ALBUMIN 3.2 GM/DL (3.2-5.2); ALT/SGPT 140 U/L (12-78); BILIRUBIN,TOTAL 1.3 MG/DL (0.2-1.0); BLOOD UREA NITROGEN 13 MG/DL (7-18); CALCIUM LEVEL 9.3 MG/DL (8.8-10.2); CARBON DIOXIDE LEVEL 28 MEQ/L (21-32); CHLORIDE LEVEL 106 MEQ/L (98-107); CREATININE FOR GFR 0.82 MG/DL (0.70-1.30); GLOMERULAR FILTRATION RATE > 60.0 (>49); GLUCOSE, FASTING 138 MG/DL (70-100); LIPASE 237 U/L (73-393); SODIUM LEVEL 139 MEQ/L (136-145); TOTAL PROTEIN 6.8 GM/DL (6.4-8.2)
[2022-01-22 20:04] LABS: RSV AMPLIFICATION NEGATIVE (NEGATIVE)
[2022-01-22] MEDS ORDERED: PIPERACILLIN/TAZOBACTAM SOD 3.375 GM in D5W MINI-BAG PLUS 50 ML IV ONE (21:40)
[2022-01-22] MEDS ORDERED: MEMA10TA19 PO (22:23)
[2022-01-22] MEDS ORDERED: INSUDET SC (22:23)
[2022-01-22] MEDS ORDERED: NYST50SS SS (22:23)
[2022-01-22] MEDS ORDERED: HOME MED LIST COMPLETE! XX SCH (22:25)
[2022-01-23] MEDS ORDERED: MEMANTINE 5MG TABLET (NAMENDA) PO ONE (00:15)
[2022-01-23] MEDS ORDERED: GLUCAGON INJ 1MG VIAL SC PRN (01:25)
[2022-01-23] MEDS ORDERED: GLUCOSE 4GM CHEW TABLET PO PRN (01:25)
[2022-01-23] MEDS ORDERED: DEXTROSE 50% 50 ML SYRINGE IV PRN (01:25)
[2022-01-23] MEDS ORDERED: HEPARIN SOD (PORCINE) 5000UNITS/ML 1ML VIAL/SYRINGE SC SCH (06:00)
[2022-01-23] MEDS ORDERED: HYDROMORPHONE HCL 0.5 MG/ 0.5 ML SYRINGE (J1170 PER 1) IV PRN (06:15)
[2022-01-23 06:45] LABS: PLATELET COUNT, AUTOMATED 108 10^3/uL (150-450)
[2022-01-23] MEDS: INSULIN LISPRO (NovoLOG) PER UNIT SC SCH (07:30)
[2022-01-23] MEDS ORDERED: PERCOCET 5MG/325MG TAB PO PRN ×2 (07:30)
[2022-01-23 08:25] LABS: HEMATOCRIT 31.9 % (42.0-52.0); HEMOGLOBIN 10.2 g/dl (13.5-17.5); MEAN CORPUSCULAR HEMOGLOBIN 27.6 pg (27.0-33.0); MEAN CORPUSCULAR VOLUME 86.4 fl (80.0-96.0); RED BLOOD COUNT 3.69 10^6/uL (4.30-6.10)
[2022-01-23 08:33] LABS: ALBUMIN 2.8 GM/DL (3.2-5.2); ALT/SGPT 98 U/L (12-78); BILIRUBIN,TOTAL 0.9 MG/DL (0.2-1.0); BLOOD UREA NITROGEN 10 MG/DL (7-18); CALCIUM LEVEL 8.9 MG/DL (8.8-10.2); CARBON DIOXIDE LEVEL 29 MEQ/L (21-32); CHLORIDE LEVEL 106 MEQ/L (98-107); CREATININE FOR GFR 0.73 MG/DL (0.70-1.30); GLOMERULAR FILTRATION RATE > 60.0 (>49); GLUCOSE, FASTING 116 MG/DL (70-100); POTASSIUM SERUM 3.4 MEQ/L (3.5-5.1); SODIUM LEVEL 139 MEQ/L (136-145); TOTAL PROTEIN 5.8 GM/DL (6.4-8.2)
[2022-01-23] MEDS ORDERED: MEMANTINE 5MG TABLET (NAMENDA) PO SCH (09:00)
[2022-01-23] MEDS ORDERED: LEVEMIR (INSULIN DETEMIR) 1 UNITS/0.01ML SC SCH (09:00)
[2022-01-23 10:21] VITALS: BP 120/69
[2022-01-23] MEDS ORDERED: INSULIN LISPRO (NovoLOG) PER UNIT SC SCH (21:00)
== END 2022-01-23 10:38 | disposition home or self-care (01) ==
LOC: M ED 13:01 → M ED INP 13:02 → INTOOBSV 01-23 01:05 → UNDOADMOB 01-23 01:05 → M ED INP 01-23 01:05
PROVIDERS: ADMIT Internal Medicine; ATTEND Internal Medicine
DX: R74.01 Elevation of levels of liver transaminase levels (principal); K86.9 Disease of pancreas, unspecified; C01 Malignant neoplasm of base of tongue; C44.529 Squamous cell carcinoma of skin of other part of trunk; C77.9 Secondary and unspecified malignant neoplasm of lymph node, unspecified; E11.9 Type 2 diabetes mellitus without complications; C91 Lymphoid leukemia; J30.2 Other seasonal allergic rhinitis; F17.210 Nicotine dependence, cigarettes, uncomplicated; Z88.1 Allergy status to other antibiotic agents; Z91.041 Radiographic dye allergy status; Z88.5 Allergy status to narcotic agent; Z79.4 Long term (current) use of insulin; Z79.899 Other long term (current) drug therapy
CPT/HCPCS: 36415; 74181; 80048; 80053; 80076; 81000; 81015; 82550; 83690; 85025; 85027; 85610; 85730; 87631; 96365; 96372; 96375; 99284; G0378; J1644; J1815; J2543

== ENCOUNTER 2022-02-01 12:51 | Outpatient (RCR) | payer MEDICARE ==
[~2022-02-01 12:51] MED LIST changes: +INSUDET SC; +NYST50SS SS
[2022-02-13] MEDS ORDERED: MEMA10TA19 PO (16:31)
== END 2022-02-15 ==
LOC: M ONCR 12:51
PROVIDERS: ATTEND General Practice
DX: C78.7 Secondary malignant neoplasm of liver and intrahepatic bile duct (principal)

== ENCOUNTER → 2022-03-06 | Outpatient (CLI) | payer MEDICARE ==
[~2022-03-06] MED LIST changes: +FLUC10TA PO; +XGEVINJ SC
== END ==
LOC: M ONCR 09:55
PROVIDERS: ATTEND Dietitian, Registered
DX: C34.90 Malignant neoplasm of unspecified part of unspecified bronchus or lung (principal)

== ENCOUNTER → 2022-03-08 | Outpatient (CLI) | payer MEDICARE ==
[~2022-03-08] MED LIST changes: +PROHANCE 279.3MG/ML 15ML VIAL As Ordered ONE; +PROHANCE 279.3MG/ML 5ML VIAL As Ordered ONE; -XGEVINJ SC
== END ==
LOC: M RAD 14:16
PROVIDERS: ATTEND General Practice
DX: C79.31 Secondary malignant neoplasm of brain (principal)
CPT/HCPCS: 70553; A9576

== ENCOUNTER → 2022-03-22 | Outpatient (CLI) | payer MEDICARE ==
[~2022-03-22] MED LIST changes: -PROHANCE 279.3MG/ML 15ML VIAL As Ordered ONE; -PROHANCE 279.3MG/ML 5ML VIAL As Ordered ONE
== END ==
LOC: M ONCR 13:43
PROVIDERS: ATTEND General Practice
DX: C84.78 Anaplastic large cell lymphoma, ALK-negative, lymph nodes of multiple sites (principal); C34.12 Malignant neoplasm of upper lobe, left bronchus or lung; C79.31 Secondary malignant neoplasm of brain; C78.7 Secondary malignant neoplasm of liver and intrahepatic bile duct; F17.210 Nicotine dependence, cigarettes, uncomplicated; R53.83 Other fatigue; Z92.21 Personal history of antineoplastic chemotherapy; Z92.3 Personal history of irradiation; Z51.0 Encounter for antineoplastic radiation therapy; Z88.5 Allergy status to narcotic agent; Z91.041 Radiographic dye allergy status; Z91.09 Other allergy status, other than to drugs and biological substances; Z79.899 Other long term (current) drug therapy

== ENCOUNTER → 2022-04-14 | Outpatient (CLI) | payer MEDICARE ==
[~2022-04-14] MED LIST changes: +XGEVINJ SC
== END ==
LOC: M LABSMTC 11:26
PROVIDERS: ATTEND Anesthesiology
DX: Z01.812 Encounter for preprocedural laboratory examination (principal); Z11.52 Encounter for screening for COVID-19

== ENCOUNTER 2022-04-16 06:06 | Day surgery (SDC) | payer MEDICARE ==
[~2022-04-16] VITALS: Ht 172.7 cm; Wt 93.8 kg
[2022-04-16] MEDS ORDERED: LR 1,000 ML IV SCH (06:45)
[2022-04-16] MEDS ORDERED: ISOVUE-300 61% 50ML VIAL As Ordered ONE (06:49)
[2022-04-16] MEDS ORDERED: fentaNYL 100 MCG/2 ML INJECTION As Ordered ONE (07:23)
[2022-04-16] MEDS ORDERED: MIDAZOLAM INJ 2MG/2ML VIAL (J2250 PER 1MG) As Ordered ONE (07:24)
[2022-04-16] MEDS ORDERED: LIDOCAINE 2% INJ 100 MG/5 ML SYRINGE As Ordered ONE (07:25)
[2022-04-16] MEDS ORDERED: ONDANSETRON 4MG 2ML VIAL As Ordered ONE (07:25)
[2022-04-16] MEDS ORDERED: propofoL 200 MG/20 ML VIAL As Ordered ONE (07:25)
[2022-04-16] MEDS ORDERED: ROCURONIUM BROMIDE 50 MG/5 ML VIAL As Ordered ONE ×2 (07:25→08:47)
[2022-04-16] MEDS ORDERED: PHENYLephrine 500MCG 5ML (100MCG/ML) SYRINGE As Ordered ONE (08:47)
[2022-04-16] MEDS ORDERED: SUGAMMADEX SODIUM 500 MG/5 ML VIAL (BRIDION) As Ordered ONE (08:51)
[2022-04-16] MEDS ORDERED: oxyCODONE 5MG TAB PO PRN (09:00)
[2022-04-16] MEDS ORDERED: ONDANSETRON 4MG 2ML VIAL IV PRN (09:00)
[2022-04-16 09:55] VITALS: BP 134/77
== END 2022-04-16 10:32 | disposition home or self-care (01) ==
LOC: M SDC 06:06
PROVIDERS: ATTEND Internal Medicine Gastroenterology
DX: K83.1 Obstruction of bile duct (principal); Z46.59 Encounter for fitting and adjustment of other gastrointestinal appliance and device; Z96.89 Presence of other specified functional implants; E11.9 Type 2 diabetes mellitus without complications; K74.60 Unspecified cirrhosis of liver; K21.9 Gastro-esophageal reflux disease without esophagitis; F41.9 Anxiety disorder, unspecified; Z88.5 Allergy status to narcotic agent; J30.2 Other seasonal allergic rhinitis; F17.210 Nicotine dependence, cigarettes, uncomplicated; Z79.899 Other long term (current) drug therapy; C34.90 Malignant neoplasm of unspecified part of unspecified bronchus or lung; Z92.3 Personal history of irradiation
CPT/HCPCS: 43274; 43276; 74330; 88104; A4649; C1769; C1876; C2625; J2250; J2370; J2405; Q9967

== ENCOUNTER → 2022-04-24 | Outpatient (REF) | payer MEDICARE ==
[2022-04-24 14:47] LABS: CHOLESTEROL RISK RATIO 6.33 (<5)
[2022-04-24 15:15] LABS: HEMOGLOBIN A1c 5.8 % (4.0-6.0)
== END ==
LOC: M LAB REF 11:53
PROVIDERS: ATTEND Physician Assistant
DX: E11.9 Type 2 diabetes mellitus without complications (principal)

== ENCOUNTER → 2022-05-10 | Outpatient (CLI) | payer MEDICARE ==
[~2022-05-10] MED LIST changes: +GASTROGRAFIN SOLUTION 30ML As Ordered ONE; +ISOVUE-370 76% 100ML VIAL As Ordered ONE
== END ==
LOC: M RAD 07:54
PROVIDERS: ATTEND Specialist
DX: C34.91 Malignant neoplasm of unspecified part of right bronchus or lung (principal); K86.9 Disease of pancreas, unspecified; D44.10 Neoplasm of uncertain behavior of unspecified adrenal gland; R93.7 Abnormal findings on diagnostic imaging of other parts of musculoskeletal system
CPT/HCPCS: 70491; 71260; 74177; Q9963; Q9967

== ENCOUNTER → 2022-06-05 | Outpatient (CLI) | payer MEDICARE ==
[~2022-06-05] MED LIST changes: -GASTROGRAFIN SOLUTION 30ML As Ordered ONE; +HOME MED LIST COMPLETE! XX SCH; -ISOVUE-370 76% 100ML VIAL As Ordered ONE; +LIDOCAINE 1% MDV 20ML VIAL As Ordered ONE; +NYST-38 PO; +NYST-38 SS; -NYST50SS PO; -NYST50SS SS; +THERTAB21 PO
[2022-06-05 12:07] VITALS: BP 132/83
== END ==
LOC: M IRPRO 08:03
PROVIDERS: ATTEND Specialist
DX: C34.32 Malignant neoplasm of lower lobe, left bronchus or lung (principal); J95.811 Postprocedural pneumothorax

== ENCOUNTER 2022-06-26 15:01 | Inpatient (IN) | payer MEDICARE ==
[~2022-06-26] VITALS: Ht 182.9 cm; Wt 84.1 kg
[~2022-06-26 15:01] MED LIST changes: +CHOL4POW26 PO; +CREO12CA PO; -HOME MED LIST COMPLETE! XX SCH; -LIDOCAINE 1% MDV 20ML VIAL As Ordered ONE; +POTA1TAB14 PO
[2022-06-26 17:03] LABS: BASO % 0.5 % (0.0-1.0); EOS # 0.2 10^3/uL (0.0-0.5); EOS % 2.4 % (0.0-3.0); HEMATOCRIT 34.5 % (42.0-52.0); HEMOGLOBIN 10.8 g/dl (13.5-17.5); LYMPH # 0.7 10^3/uL (1.5-5.0); LYMPH % 10.5 % (24.0-44.0); MEAN CORPUSCULAR HEMOGLOBIN 27.7 pg (27.0-33.0); MEAN CORPUSCULAR HGB CONC 31.3 g/dl (32.0-36.5); MEAN CORPUSCULAR VOLUME 88.5 fl (80.0-96.0); MONO # 0.4 10^3/uL (0.0-0.8); NEUTROPHILS # 4.9 10^3/uL (1.5-8.5); NEUTROPHILS % 78.8 % (36.0-66.0); PLATELET COUNT, AUTOMATED 219 10^3/uL (150-450); WHITE BLOOD COUNT 6.2 10^3/uL (4.0-10.0)
[2022-06-26 17:22] LABS: INR 1.02; PROTHROMBIN TIME 13.6 SECONDS (12.5-14.5)
[2022-06-26 17:31] LABS: ALBUMIN 2.8 G/DL (3.2-5.2); ALKALINE PHOSPHATASE 398 U/L (46-116); ALT/SGPT 132 U/L (7.0-40); AST/SGOT 113 U/L (<34); BILIRUBIN,DIRECT 3.7 MG/DL (<0.4); BILIRUBIN,TOTAL 5.7 MG/DL (0.3-1.2); BLOOD UREA NITROGEN 10 MG/DL (9-23); CARBON DIOXIDE LEVEL 25 MMOL/L (20-31); CHLORIDE LEVEL 104 MMOL/L (98-107); CREATININE FOR GFR 0.61 MG/DL (0.70-1.30); GLOMERULAR FILTRATION RATE > 60.0 (>49); GLUCOSE, FASTING 111 MG/DL (74-106); LIPASE 34 U/L (12-53); SODIUM LEVEL 138 MMOL/L (136-145); TOTAL PROTEIN 6.4 G/DL (5.7-8.2)
[2022-06-26] MEDS ORDERED: PIPERACILLIN/TAZOBACTAM SOD 3.375 GM in D5W MINI-BAG PLUS 50 ML IV ONE (17:45)
[2022-06-26 17:48] LABS: RSV AMPLIFICATION NEGATIVE (NEGATIVE)
[2022-06-26] MEDS ORDERED: HOME MED LIST COMPLETE! XX SCH (20:30)
[2022-06-26] MEDS ORDERED: DEXTROSE 50% 50ML SYRINGE IV PRN (20:30)
[2022-06-26] MEDS ORDERED: GLUCAGON INJ 1MG VIAL SC PRN (20:30)
[2022-06-26] MEDS ORDERED: GLUCOSE 4GM CHEW TABLET PO PRN (20:30)
[2022-06-26 22:09] VITALS: BP 105/71
[2022-06-26] MEDS: INSULIN LISPRO (NovoLOG) PER UNIT SC SCH (23:20)
[2022-06-27] VITALS (9 sets, daily range): BP systolic 105–129; BP diastolic 68–80
[2022-06-27] MEDS: PIPERACILLIN/TAZOBACTAM SOD 3.375 GM in D5W MINI-BAG PLUS 50 ML IV SCH ×4 (00:29→17:33)
[2022-06-27] MEDS: MEMANTINE 5MG TABLET (NAMENDA) PO SCH ×3 (00:29→21:09)
[2022-06-27] MEDS: INSULIN LISPRO (NovoLOG) PER UNIT SC SCH ×2 (05:35→17:23)
[2022-06-27 05:56] LABS: HEMATOCRIT 28.8 % (42.0-52.0); MEAN CORPUSCULAR HEMOGLOBIN 27.2 pg (27.0-33.0); MEAN CORPUSCULAR HGB CONC 31.3 g/dl (32.0-36.5); PLATELET COUNT, AUTOMATED 176 10^3/uL (150-450); RED BLOOD COUNT 3.31 10^6/uL (4.30-6.10); WHITE BLOOD COUNT 5.3 10^3/uL (4.0-10.0)
[2022-06-27 06:47] LABS: ALBUMIN 2.5 G/DL (3.2-5.2); ALKALINE PHOSPHATASE 367 U/L (46-116); ALT/SGPT 116 U/L (7.0-40); AST/SGOT 84 U/L (<34); BILIRUBIN,TOTAL 4.7 MG/DL (0.3-1.2); BLOOD UREA NITROGEN 8 MG/DL (9-23); CARBON DIOXIDE LEVEL 25 MMOL/L (20-31); CHLORIDE LEVEL 110 MMOL/L (98-107); CREATININE FOR GFR 0.66 MG/DL (0.70-1.30); GLOMERULAR FILTRATION RATE > 60.0 (>49); GLUCOSE, FASTING 100 MG/DL (74-106); MAGNESIUM LEVEL 1.8 MG/DL (1.8-2.4); POTASSIUM SERUM 3.4 MMOL/L (3.5-5.1); SODIUM LEVEL 142 MMOL/L (136-145); TOTAL PROTEIN 5.5 G/DL (5.7-8.2)
[2022-06-27] MEDS ORDERED: NS 1,000 ML IV SCH (07:00)
[2022-06-27] MEDS: MULTIVITAMINS/MINERALS THERAP 1 TAB PO SCH (08:26)
[2022-06-27] MEDS ORDERED: KCL 10MEQ/100ML SWI (KRUN) 10 MEQ in IV 1 EA IV SCH (09:00)
[2022-06-27] MEDS: NS 0.45% 1,000 ML IV SCH ×2 (10:29→17:23)
[2022-06-27] MEDS ORDERED: ISOVUE-300 61% 100ML VIAL As Ordered ONE (14:44)
[2022-06-27] MEDS ORDERED: ONDANSETRON 4MG 2ML VIAL As Ordered ONE (15:11)
[2022-06-27] MEDS ORDERED: ROCURONIUM BROMIDE 50MG/5ML VIAL As Ordered ONE (15:11)
[2022-06-27] MEDS ORDERED: SUGAMMADEX SODIUM 500 MG/5 ML VIAL (BRIDION) As Ordered ONE ×2 (15:11→16:10)
[2022-06-27] MEDS ORDERED: propofoL 200 MG/20 ML VIAL As Ordered ONE (15:11)
[2022-06-27] MEDS ORDERED: fentaNYL 100 MCG/2 ML INJECTION As Ordered ONE (15:12)
[2022-06-27] MEDS ORDERED: KETOROLAC 60MG 2ML VIAL As Ordered ONE (15:56)
[2022-06-27 18:48] LABS: BLOOD UREA NITROGEN 7 MG/DL (9-23); CARBON DIOXIDE LEVEL 24 MMOL/L (20-31); CHLORIDE LEVEL 105 MMOL/L (98-107); CREATININE FOR GFR 0.65 MG/DL (0.70-1.30); GLOMERULAR FILTRATION RATE > 60.0 (>49); GLUCOSE, FASTING 110 MG/DL (74-106); SODIUM LEVEL 136 MMOL/L (136-145)
[2022-06-27] MEDS ORDERED: SIMETHICONE 80MG CHEW TAB PO PRN (19:00)
[2022-06-27] MEDS ORDERED: INSULIN LISPRO (NovoLOG) PER UNIT SC SCH (21:00)
[2022-06-27] MEDS ORDERED: ENOXAPARIN 40MG/0.4ML SYRINGE (J1650 PER 10MG) SC SCH (21:00)
[2022-06-28] MEDS: PIPERACILLIN/TAZOBACTAM SOD 3.375 GM in D5W MINI-BAG PLUS 50 ML IV SCH ×2 (00:07→05:37)
[2022-06-28] MEDS: NS 0.45% 1,000 ML IV SCH (00:07)
[2022-06-28 02:00] VITALS: BP 109/71
[2022-06-28 06:00] VITALS: BP 109/69
[2022-06-28 06:03] LABS: HEMATOCRIT 31.4 % (42.0-52.0); HEMOGLOBIN 9.9 g/dl (13.5-17.5); MEAN CORPUSCULAR HEMOGLOBIN 27.7 pg (27.0-33.0); MEAN CORPUSCULAR HGB CONC 31.5 g/dl (32.0-36.5); MEAN CORPUSCULAR VOLUME 87.7 fl (80.0-96.0); PLATELET COUNT, AUTOMATED 192 10^3/uL (150-450); RED BLOOD COUNT 3.58 10^6/uL (4.30-6.10)
[2022-06-28 06:30] LABS: ALBUMIN 2.7 G/DL (3.2-5.2); ALKALINE PHOSPHATASE 388 U/L (46-116); ALT/SGPT 115 U/L (7.0-40); AST/SGOT 65 U/L (<34); BLOOD UREA NITROGEN 11 MG/DL (9-23); CALCIUM LEVEL 7.6 MG/DL (8.3-10.6); CARBON DIOXIDE LEVEL 24 MMOL/L (20-31); CHLORIDE LEVEL 106 MMOL/L (98-107); CREATININE FOR GFR 0.68 MG/DL (0.70-1.30); GLOMERULAR FILTRATION RATE > 60.0 (>49); GLUCOSE, FASTING 114 MG/DL (74-106); POTASSIUM SERUM 4.1 MMOL/L (3.5-5.1); SODIUM LEVEL 137 MMOL/L (136-145); TOTAL PROTEIN 5.5 G/DL (5.7-8.2)
[2022-06-28] MEDS: INSULIN LISPRO (NovoLOG) PER UNIT SC SCH (07:30)
[2022-06-28] MEDS ORDERED: CHOLESTYRAMINE 4GM PWD PKT PO SCH (09:00)
[2022-06-28] MEDS ORDERED: POTASSIUM CHLORIDE 10MEQ SR TABLET PO SCH (09:00)
[2022-06-28] MEDS: MEMANTINE 5MG TABLET (NAMENDA) PO SCH (09:33)
[2022-06-28] MEDS: MULTIVITAMINS/MINERALS THERAP 1 TAB PO SCH (09:33)
== END 2022-06-28 10:31 | disposition home or self-care (01) | DRG 438 ==
LOC: M ED 15:01 → M ED INP 20:26 → M MSPAV 22:09
PROVIDERS: ADMIT Internal Medicine; ATTEND Internal Medicine
PROC: 0FPB8DZ Removal of Intraluminal Device from Hepatobiliary Duct, Via Natural or Artificial Opening Endoscopic (ICD-10-PCS; 2022-06-27)
PROC: 0FB98ZX Excision of Common Bile Duct, Via Natural or Artificial Opening Endoscopic, Diagnostic (ICD-10-PCS; 2022-06-27)
PROC: 0F798DZ Dilation of Common Bile Duct with Intraluminal Device, Via Natural or Artificial Opening Endoscopic (ICD-10-PCS; principal; 2022-06-27 15:00)
DX: K86.89 Other specified diseases of pancreas (principal); K83.1 Obstruction of bile duct; C85.10 Unspecified B-cell lymphoma, unspecified site; C78.02 Secondary malignant neoplasm of left lung; R17 Unspecified jaundice; C25.9 Malignant neoplasm of pancreas, unspecified; E11.9 Type 2 diabetes mellitus without complications; G47.33 Obstructive sleep apnea (adult) (pediatric); M54.9 Dorsalgia, unspecified; D64.9 Anemia, unspecified; C44.529 Squamous cell carcinoma of skin of other part of trunk; K21.9 Gastro-esophageal reflux disease without esophagitis; H91.93 Unspecified hearing loss, bilateral; Z66 Do not resuscitate; D49.0 Neoplasm of unspecified behavior of digestive system; Z46.59 Encounter for fitting and adjustment of other gastrointestinal appliance and device; E87.6 Hypokalemia; G89.29 Other chronic pain; R74.01 Elevation of levels of liver transaminase levels; Z88.1 Allergy status to other antibiotic agents; E80.6 Other disorders of bilirubin metabolism; Z87.891 Personal history of nicotine dependence; Z95.828 Presence of other vascular implants and grafts; Z88.5 Allergy status to narcotic agent; Z79.899 Other long term (current) drug therapy

== ENCOUNTER → 2022-07-01 | Outpatient (CLI) | payer MEDICARE ==
[~2022-07-01] MED LIST changes: +PROHANCE 279.3MG/ML 15ML VIAL As Ordered ONE; +PROHANCE 279.3MG/ML 5ML VIAL As Ordered ONE
== END ==
LOC: M RAD 14:59
PROVIDERS: ATTEND General Practice
DX: C84.78 Anaplastic large cell lymphoma, ALK-negative, lymph nodes of multiple sites (principal); C34.12 Malignant neoplasm of upper lobe, left bronchus or lung; C79.31 Secondary malignant neoplasm of brain; C78.7 Secondary malignant neoplasm of liver and intrahepatic bile duct; Z51.0 Encounter for antineoplastic radiation therapy

== ENCOUNTER → 2022-07-03 | Outpatient (CLI) | payer MEDICARE ==
[~2022-07-03] MED LIST changes: -PROHANCE 279.3MG/ML 15ML VIAL As Ordered ONE; -PROHANCE 279.3MG/ML 5ML VIAL As Ordered ONE
== END ==
LOC: M ONCR 10:15
PROVIDERS: ATTEND General Practice
DX: C01 Malignant neoplasm of base of tongue (principal); C34.12 Malignant neoplasm of upper lobe, left bronchus or lung; C78.7 Secondary malignant neoplasm of liver and intrahepatic bile duct; C79.31 Secondary malignant neoplasm of brain; J30.81 Allergic rhinitis due to animal (cat) (dog) hair and dander; J30.89 Other allergic rhinitis; Z79.620 Long term (current) use of immunosuppressive biologic; Z88.1 Allergy status to other antibiotic agents; Z88.5 Allergy status to narcotic agent; Z85.72 Personal history of non-Hodgkin lymphomas; Z92.21 Personal history of antineoplastic chemotherapy; Z92.3 Personal history of irradiation

== ENCOUNTER → 2022-07-22 | Outpatient (CLI) | payer MEDICARE ==
[~2022-07-22] MED LIST changes: +ELIQ5TAB PO; +INSU100I6 SC; -LEVE1INJ5 SC
== END ==
LOC: M RAD 14:34
PROVIDERS: ATTEND Specialist
DX: I82.622 Acute embolism and thrombosis of deep veins of left upper extremity (principal)

== ENCOUNTER → 2022-09-06 | Outpatient (CLI) | payer MEDICARE ==
[~2022-09-06] MED LIST changes: +DEXA4TA PO; +DEXL30CA PO; +LACT20EL PO; +MILKSUS3 PO; +POTA-151 PO
== END ==
LOC: M ONCR 10:16
PROVIDERS: ATTEND General Practice
DX: C79.51 Secondary malignant neoplasm of bone (principal); R14.0 Abdominal distension (gaseous); K59.00 Constipation, unspecified

== ENCOUNTER 2022-09-11 11:25 | Outpatient (RCR) | payer MEDICARE ==
[~2022-09-11 11:25] MED LIST changes: +LORA1TAB23 PO; -LORA1TAB4 PO; +POTA-298 PO; -POTA1TAB14 PO
[2022-09-11] MEDS ORDERED: METO5TAB2 PO (11:47)
== END 2022-09-15 ==
LOC: M ONCR 11:25
PROVIDERS: ATTEND General Practice
DX: C79.51 Secondary malignant neoplasm of bone (principal); C84.78 Anaplastic large cell lymphoma, ALK-negative, lymph nodes of multiple sites; C01 Malignant neoplasm of base of tongue; C34.12 Malignant neoplasm of upper lobe, left bronchus or lung; C79.31 Secondary malignant neoplasm of brain; C78.7 Secondary malignant neoplasm of liver and intrahepatic bile duct; C79.70 Secondary malignant neoplasm of unspecified adrenal gland

== ENCOUNTER → 2022-09-25 | Outpatient (CLI) | payer MEDICARE ==
[~2022-09-25] MED LIST changes: +CLAR1TAB13 PO; +METO5TAB2 PO; +PROHANCE 279.3MG/ML 15ML VIAL As Ordered ONE; +PROHANCE 279.3MG/ML 5ML VIAL As Ordered ONE
[2022-09-25 12:32] LABS: ALBUMIN 2.1 G/DL (3.2-5.2); ALKALINE PHOSPHATASE 81 U/L (46-116); ALT/SGPT 17 U/L (7.0-40); AST/SGOT 22 U/L (<34); BILIRUBIN,TOTAL 0.2 MG/DL (0.3-1.2); BLOOD UREA NITROGEN 11 MG/DL (9-23); CALCIUM LEVEL 7.8 MG/DL (8.3-10.6); CARBON DIOXIDE LEVEL 28 MMOL/L (20-31); CHLORIDE LEVEL 107 MMOL/L (98-107); CREATININE FOR GFR 0.61 MG/DL (0.70-1.30); GLOMERULAR FILTRATION RATE > 60.0 (>49); GLUCOSE, FASTING 124 MG/DL (74-106); POTASSIUM SERUM 4.3 MMOL/L (3.5-5.1); SODIUM LEVEL 137 MMOL/L (136-145); TOTAL PROTEIN 5.6 G/DL (5.7-8.2)
== END ==
LOC: M RAD 10:35
PROVIDERS: ATTEND General Practice
DX: C79.31 Secondary malignant neoplasm of brain (principal)
CPT/HCPCS: 36415; 70553; 80053; A9576

== ENCOUNTER → 2022-10-01 | Outpatient (CLI) | payer MEDICARE ==
[~2022-10-01] MED LIST changes: +JOBSMIS65 MC; -PROHANCE 279.3MG/ML 15ML VIAL As Ordered ONE; -PROHANCE 279.3MG/ML 5ML VIAL As Ordered ONE
== END ==
LOC: M ONCR 10:08
PROVIDERS: ATTEND General Practice
DX: C79.31 Secondary malignant neoplasm of brain (principal); C34.91 Malignant neoplasm of unspecified part of right bronchus or lung; Z92.3 Personal history of irradiation; Z92.21 Personal history of antineoplastic chemotherapy; J30.81 Allergic rhinitis due to animal (cat) (dog) hair and dander; J30.89 Other allergic rhinitis; Z79.01 Long term (current) use of anticoagulants; Z79.899 Other long term (current) drug therapy; Z88.5 Allergy status to narcotic agent; Z88.8 Allergy status to other drugs, medicaments and biological substances

== ENCOUNTER → 2022-10-15 | Outpatient (CLI) | payer MEDICARE ==
[2022-10-15 10:17] VITALS: BP 85/64
== END ==
LOC: M PAL 09:17
PROVIDERS: ATTEND Nurse Practitioner Adult Health
DX: C34.90 Malignant neoplasm of unspecified part of unspecified bronchus or lung (principal); C79.31 Secondary malignant neoplasm of brain; Z74.09 Other reduced mobility; R60.0 Localized edema; Z51.5 Encounter for palliative care; Z85.72 Personal history of non-Hodgkin lymphomas; Z85.828 Personal history of other malignant neoplasm of skin; R53.1 Weakness; R53.83 Other fatigue; M54.32 Sciatica, left side; R63.0 Anorexia; R39.15 Urgency of urination; L98.9 Disorder of the skin and subcutaneous tissue, unspecified; R63.4 Abnormal weight loss; E88.09 Other disorders of plasma-protein metabolism, not elsewhere classified; R43.2 Parageusia; Z66 Do not resuscitate; F17.200 Nicotine dependence, unspecified, uncomplicated; Z80.6 Family history of leukemia; J30.81 Allergic rhinitis due to animal (cat) (dog) hair and dander; J30.1 Allergic rhinitis due to pollen; Z88.1 Allergy status to other antibiotic agents; Z88.5 Allergy status to narcotic agent; Z79.899 Other long term (current) drug therapy; Z79.01 Long term (current) use of anticoagulants; Z92.21 Personal history of antineoplastic chemotherapy; Z92.3 Personal history of irradiation

== ENCOUNTER → 2022-10-16 | Outpatient (RCR) | payer MEDICARE ==
[~2022-10-16] MED LIST changes: +IBUP100S65 PO; +LORA2CON5 PO; +MORP1SOL PO; +ONDA4TAB6 PO; +TRAN1DIS4 TOP
== END ==
LOC: M ONCR 09-17 15:10
PROVIDERS: ATTEND General Practice
DX: C79.51 Secondary malignant neoplasm of bone (principal); C84.78 Anaplastic large cell lymphoma, ALK-negative, lymph nodes of multiple sites; C01 Malignant neoplasm of base of tongue; C34.12 Malignant neoplasm of upper lobe, left bronchus or lung; C79.31 Secondary malignant neoplasm of brain; C78.7 Secondary malignant neoplasm of liver and intrahepatic bile duct; C79.70 Secondary malignant neoplasm of unspecified adrenal gland

== ENCOUNTER 2022-10-18 12:11 | Outpatient (RCR) | payer MEDICARE ==
[~2022-10-18 12:11] MED LIST changes: -IBUP100S65 PO; -LORA2CON5 PO; -MORP1SOL PO; -ONDA4TAB6 PO; -TRAN1DIS4 TOP
[2022-10-22] MEDS ORDERED: LORA2CON5 PO (09:08)
[2022-10-22] MEDS ORDERED: MORP1SOL PO (09:08)
[2022-10-22] MEDS ORDERED: ONDA4TAB6 PO (09:10)
[2022-10-29] MEDS ORDERED: IBUP100S65 PO (14:31)
[2022-11-11] MEDS ORDERED: TRAN1DIS4 TOP (10:39)
== END 2022-11-15 ==
LOC: M ONCR 12:11
PROVIDERS: ATTEND General Practice
DX: C79.51 Secondary malignant neoplasm of bone (principal); C84.78 Anaplastic large cell lymphoma, ALK-negative, lymph nodes of multiple sites; C01 Malignant neoplasm of base of tongue; C34.12 Malignant neoplasm of upper lobe, left bronchus or lung; C79.31 Secondary malignant neoplasm of brain; C78.7 Secondary malignant neoplasm of liver and intrahepatic bile duct; C79.70 Secondary malignant neoplasm of unspecified adrenal gland